=== PATIENT | male | born 1940 | race Caucasian/White ===

== ENCOUNTER 2024-02-23 09:12 | Day surgery (SDC) | payer OTHER ==
[2024-02-23] VITALS (9 sets, daily range): BP systolic 122–148; BP diastolic 76–102
[~2024-02-23] VITALS: Ht 170.2 cm; Wt 109.0 kg
[~2024-02-23 09:12] MED LIST: ALBU90OI6 INH; ASPI81CH PO; CARV25 PO; Crestor40 MG PO; DOXA1 PO; FURO40 PO; NAPR500 PO; Norco 5-325 Ta1 EACH PO; OXYB5 PO; POTCHL20ER PO; WARF1 PO; WARF5 PO; XARELTO15 MG PO
[2024-02-23] MEDS ORDERED: ERGO50000 PO (10:05)
[2024-02-23] MEDS ORDERED: FISH OIL 1,0001 EA10 PO (10:05)
[2024-02-23] MEDS ORDERED: Verapamil HCL 2.5 MG/ML 2ML Injection ONE (11:08)
[2024-02-23] MEDS ORDERED: NS 250 ML IV ONE (11:08)
[2024-02-23] MEDS ORDERED: Heparin Sodium 1000 Units/ML 10ML MDV ONE (11:08)
[2024-02-23] MEDS ORDERED: NS 1,000 ML IV ONE ×2 (11:08→11:09)
[2024-02-23] MEDS ORDERED: Nitroglycerin 2 MG/20 ML BTL ONE (11:09)
[2024-02-23] MEDS ORDERED: FentaNYL Citrate 50 MCG/ML 2 ML Injection ONE (11:22)
[2024-02-23] MEDS ORDERED: Midazolam HCl 1MG / ML 2ML Vial ONE (11:22)
[2024-02-23 12:02] LABS: International Normalized Ratio 2.32; Prothrombin Time Results 23.3 Sec (9.7-11.5)
--- NOTE | 2024-02-23 13:13 | NUR ---
PATIENT ARRIVED TO RECOVERY ROOM SITTING UPRIGHT IN BED. TR BAND FULLY INFALTED. SITE C/D/I SOFT/NONTENDER, NO EVIDENCE OF BLEEDING. VSS ON RA. PATIENT DNEYING ANY CP. PATIENT CONVERSING APPROPRIATELY WITH FAMILY PRESENT AT BEDSIDE
--- NOTE | 2024-02-23 14:00 | NUR ---
INITIAL 2 CC OF AIR REMOVED FROM RIGHT RADIAL TR BAND. SITE C/D/I SOFT/NONTENDER, NO EVIDENCE OF BLEEDING. VSS ON RA. PATIENT DENYING ANY CP
--- NOTE | 2024-02-23 14:08 | NUR ---
NEW PRESCRIPTION CALLED IN TO [facility]
[2024-02-23] MEDS ORDERED: METO2.5 PO (14:25)
--- NOTE | 2024-02-23 14:39 | NUR ---
ALL AIR REMOVED FROM RIGHT RADIAL TR BAND. SITE C/D/I SOFT/NONTENDER, NO EVIDENCE OF BLEEDING. VSS ON RA
--- NOTE | 2024-02-23 14:52 | NUR ---
PATIENT VOIDING USING URINAL WITHOUT DIFFICULTY.
--- NOTE | 2024-02-23 15:35 | NUR ---
DISCHARGE INSTRUCTIONS REVIEWED WITH PATIENT AND DAUGHTER. ALL QUESTIONS WERE ANSWERED. NEW PRESCRIPTION FAXED AND CALLED TO PHARMACY. PIV REMOVED WITHOUT DIFFICULTY,C ATHETER INTACT. TR BAND REMOVED, CLOTH DOT AND ARM BOARD IN PLACE. VSS ON RA. PATIENT GETTING DRESSING AND TRANSFERRING TO WHEELCHAIR WITHOUT DIFFICULTY. PATIENT WHEELED TO HOSPITAL ENTRANCE AND DAUGHTER ABLE TO PROVIDE TRANSPORTATION HOME.
== END 2024-02-23 15:35 | disposition home or self-care (01) ==
LOC: MHTC 09:12
PROVIDERS: Student in an Organized Health Care Education/Training Program
DX: I25.10 Atherosclerotic heart disease of native coronary artery without angina pectoris (principal); R94.39 Abnormal result of other cardiovascular function study; E78.5 Hyperlipidemia, unspecified; G47.33 Obstructive sleep apnea (adult) (pediatric); E66.01 Morbid (severe) obesity due to excess calories; I11.0 Hypertensive heart disease with heart failure; I50.30 Unspecified diastolic (congestive) heart failure; I27.20 Pulmonary hypertension, unspecified; I48.21 Permanent atrial fibrillation; J44.9 Chronic obstructive pulmonary disease, unspecified; K21.9 Gastro-esophageal reflux disease without esophagitis; Z79.899 Other long term (current) drug therapy
CPT/HCPCS: 76937; 85610; 93456; 99152; 99153; C1769; C1887; C1894; J1644; J2250; J3010; J7030; J7050; Q9967

== ENCOUNTER → 2025-03-30 | Outpatient (CLI) | payer OTHER ==
[~2025-03-30] MED LIST changes: +ERGO50000 PO; +FISH OIL 1,0001 EA10 PO; +METO2.5 PO
[2025-04-02 09:51] LABS: Stool Occult Bld Immuno 1 Negative (NEGATIVE)
== END ==
LOC: LAB 14:38 → LAB SHORT 14:38
PROVIDERS: Family Medicine
DX: D64.9 Anemia, unspecified (principal)
CPT/HCPCS: 82274